=== PATIENT | female | born 1955 | race Hispanic/Latino ===

== ENCOUNTER → 2017-10-25 | Outpatient (CLI) | payer OTHER | END | disposition home or self-care (01) | LOC: SHCH 13:08 | PROVIDERS: ATTEND Internal Medicine Cardiovascular Disease | DX: I10 Essential (primary) hypertension (principal) | CPT/HCPCS: 93306 ==

== ENCOUNTER 2020-05-13 06:26 | Day surgery (SDC) | payer OTHER ==
[2020-05-11 09:58] LABS: BASOPHILS % (AUTO) 0.5 % (0.0-5.0); EOSINOPHILS % (AUTO) 4.7 % (0.0-8.0); HEMATOCRIT 42.8 % (36-48); LYMPHOCYTES % (AUTO) 45.4 % (21.0-51.0); MEAN CORPUSCULAR HEMOGLOBIN 30.1 pg (27.0-33.0); MEAN CORPUSCULAR HGB CONC 32.2 g/dL (32.0-36.0); MEAN CORPUSCULAR VOLUME 93.4 fL (79-99); MONOCYTES % (AUTO) 7.4 % (3.0-13.0); NEUTROPHILS % (AUTO) 41.9 % (40.0-77.0); PLATELET COUNT (AUTO) 203 K/uL (130-400); RED BLOOD CELL COUNT(AUTO) 4.58 MIL/uL (4.00-5.50); RED CELL DISTRIBUTION WIDTH 16.4 % (11.0-15.5); WHITE BLOOD COUNT (AUTO) 7.5 K/uL (4.8-10.8)
[2020-05-11 10:09] LABS: CREATININE 1.5 mg/dL (0.5-1.5)
[2020-05-11 10:30] LABS: INR 0.94 (0.85-1.15); PARTIAL THROMBOPLASTIN TIME 27.8 SEC (26.3-35.5); PROTHROMBIN TIME 10.2 SEC (9.6-11.6)
--- NOTE | 2020-05-11 10:48 | NUR ---
calcium INFORMED DR. CHELSIE SOT OF ABNORMAL CALCIUM LEVEL. SHE WILL INFORM HIM AND CALL ME BACK.
--- NOTE | 2020-05-11 10:59 | NUR ---
CALCIUM JUDAH ON PHONE. PER DR. VARGAS, REPEAT CALCIUM LEVEL ON AM OF PROCEDURE.
[2020-05-13] VITALS (12 sets, daily range): BP systolic 104–167; BP diastolic 54–78
[~2020-05-13] VITALS: Ht 161.3 cm; Wt 95.4 kg
[~2020-05-13 06:26] MED LIST: AEC81 PO; ATEN50TA PO; CALC0.253 PO; CALC600T15 PO; CEFAZOLIN SODIUM 1 GM VIAL IVP SCH; CLON1TAB12 PO; INSU100I15 SQ; LEVO200T10 PO; LOSA50TA64 PO; MAGN250T10 PO; SIMV10TA97 PO; SODIUM CHLORIDE 0.9% 1000ML 1,000 ML IV ONE; SODIUM CHLORIDE 0.9% 500ML 500 ML IV SCH; [UNRECOGNIZED DRUG - OTHER] PO
--- NOTE | 2020-05-13 07:11 | NUR ---
MESSAGE LEFT WITH DR VARGAS TO REPORT CALCIUM LEVEL 11.1.
[2020-05-13] MEDS ORDERED: IODIXANOL 320 MG/ML 100 ML VIAL ONE (08:08)
[2020-05-13] MEDS ORDERED: MIDAZOLAM HCL 1 MG/ML 2ML VIAL ONE ×4 (08:25→10:07)
[2020-05-13] MEDS ORDERED: BUPIVACAINE/PF 0.25% 30ML VIAL IJ ONE (08:25)
[2020-05-13] MEDS ORDERED: MEPERIDINE-PF 25 MG/ML SYG ONE ×4 (08:25→10:07)
[2020-05-13] MEDS ORDERED: CEFAZOLIN SODIUM 1 GM VIAL ONE (08:25)
[2020-05-13] MEDS ORDERED: LIDOCAINE HCL 1% MDV 50ML VIAL ONE (08:27)
[2020-05-13] MEDS ORDERED: TRAM50TA4 PO (11:03)
--- NOTE | 2020-05-13 11:25 | NUR ---
Pt received Received pt from labor and delivery registered nurse via bed accompanied by JOYCELYN Mejia. Pt awake and alert. Denies any pain or discomfort only states feeling sleepy. Pt has dressing to left upper chest with gauze and tegaderm. Surgical site appears with no hematoma, no drainage no s/s of infection. Pt has left arm in a sling for support. Report was received and orders reviewed. Pt made comfortable with call light within reach.
[2020-05-13] MEDS: ACETAMINOPHEN-CODEINE 300/30MG TAB PO PRN ×2 (12:35→12:36)
--- NOTE | 2020-05-13 12:37 | NUR ---
Med adm Adminstered 1 tab of Tylenol/codeine as per written order (Order states 1-2 tabs).
--- NOTE | 2020-05-13 13:23 | NUR ---
[facility] REP CALLED AND MADE AWARE OF DR VARGAS REQUEST TO INTERROGATE NEW DEVICE BEFORE DISCHARGE
--- NOTE | 2020-05-13 14:20 | NUR ---
Report given Report given to Kenia Mcmahan RN to continue providing care. Spoke to pt's daughter Ruthie Diaz and gave her discharge instructions. All questions and concerns addressed.
--- NOTE | 2020-05-13 14:20 | NUR ---
REPORT RECEIVED REPORT FROM GUSTAVO GONZALEZ RN. WILL CONTINUE WITH PATIENT CARE.
--- NOTE | 2020-05-13 15:53 | NUR ---
CHEST XRAY DR. VARGAS SAW CHEST XRAY. OK TO PROCEED WITH DISCHARGE HOME ONCE REP. COMES TO EVALUATE MONITOR.
--- NOTE | 2020-05-13 16:05 | NUR ---
REP JOHN WITH [employer] HERE TO [facility]. RESULTS SENT TO DR VARGAS. OK TO DISCHARGE PT.
--- NOTE | 2020-05-13 16:30 | NUR ---
DISCHARGE PT GIVEN DISCHARGE INSTRUCTIONS AND VOICED UNDERSTANDING. PT TAKEN OUT VIA W/C BY ERIN ESCOBAR. NO BLEEDING OR HEMATOMA TO LEFT CHEST WALL. PT HAD SLING ON TO LEFT ARM
== END 2020-05-13 16:30 | disposition home or self-care (01) ==
LOC: DAH 06:26
PROVIDERS: ATTEND Internal Medicine Cardiovascular Disease
DX: T82.110A Breakdown (mechanical) of cardiac electrode, initial encounter (principal); I49.5 Sick sinus syndrome; I42.8 Other cardiomyopathies; I44.2 Atrioventricular block, complete; I11.0 Hypertensive heart disease with heart failure; I50.22 Chronic systolic (congestive) heart failure; E78.5 Hyperlipidemia, unspecified; E11.9 Type 2 diabetes mellitus without complications; E89.0 Postprocedural hypothyroidism; Z79.890 Hormone replacement therapy; Z79.82 Long term (current) use of aspirin; Z79.899 Other long term (current) drug therapy; Z79.01 Long term (current) use of anticoagulants; Z98.890 Other specified postprocedural states; Z85.850 Personal history of malignant neoplasm of thyroid; Y83.8 Other surgical procedures as the cause of abnormal reaction of the patient, or of later complication, without mention of misadventure at the time of the procedure
CPT/HCPCS: 33206; 33225; 33233; 36415 ×2; 71045; 80048; 82310; 82948 ×2; 85025; 85610; 85730; 93005; A4215; A4216; A4221; A4222; A4223 ×3; A4606; A4663; A6258; A6402; C1769; C1898; C1900; C2621; J0690; J2175 ×3; J2250 ×3; J3490 ×2; J7030 ×2; Q9967; 99156; 99157

== ENCOUNTER → 2020-06-15 | Outpatient (CLI) | payer OTHER ==
[~2020-06-15] MED LIST changes: -CEFAZOLIN SODIUM 1 GM VIAL IVP SCH; -SODIUM CHLORIDE 0.9% 1000ML 1,000 ML IV ONE; -SODIUM CHLORIDE 0.9% 500ML 500 ML IV SCH; +TRAM50TA4 PO
== END | disposition home or self-care (01) ==
LOC: RAH 11:24
PROVIDERS: ATTEND Internal Medicine Cardiovascular Disease
DX: R60.9 Edema, unspecified (principal)
CPT/HCPCS: 93971